=== PATIENT | male | born 1945 | race Caucasian/White ===

== ENCOUNTER 2021-07-24 07:48 | Emergency (ER) | payer MEDICARE, OTHER ==
[~2021-07-24 07:48] MED LIST: CATAPRES0.1 MG PO; IBUPROFEN400 MG PO; PRAVACHOL20 MG PO; PROTONIX 40MG T40 MG PO; TENORMIN50 MG PO; VITAMIN D32000 UNIT PO; ZESTORETIC 20-1 EACH PO; ZYRTEC10 M3 PO
[2021-07-24 08:28] LABS: BASOPHIL 0.2 % (0-2); EOSINOPHIL 4.2 % (0-7); HCT 46.7 % (42.0-52.0); HGB 15.6 g/dl (13.2-18.0); LYMPHOCYTE 20.3 % (15-48); MCH 30.8 pg (25.0-31.0); MCHC 33.4 g/dL (32.0-36.0); MCV 92.1 fL (78.0-100.0); MONOCYTE 9.4 % (0-12); MPV 9.6 fL (6.0-9.5); NEUTROPHIL 65.5 % (41-80); NRBC 0; PLT 198 K/uL (150-400); RBC 5.07 M/uL (4.70-6.00); RDW 12.6 % (11.5-14.0); WBC 8.4 K/uL (4.0-10.5)
[2021-07-24 08:43] LABS: ALBUMIN 3.6 g/dL (3.4-5.0); BILIRUBIN - TOTAL 1.5 mg/dL (0.2-1.0); BUN/CREAT RATIO (CALC) 18.3 RATIO; CREATININE 1.09 mg/dL (0.67-1.17); GLOBULIN (CALCULATION) 3.4 g/dL; POTASSIUM 3.4 mmol/L (3.5-5.1)
[2021-07-24] MEDS ORDERED: ZESTRIL40 MG PO (09:12)
== END 2021-07-24 10:17 | disposition home or self-care (01) ==
LOC: FER 07:48
PROVIDERS: Internal Medicine
DX: I10 Essential (primary) hypertension (principal); Z79.899 Other long term (current) drug therapy
CPT/HCPCS: 36415; 80053; 84484; 85025; 93005; J3490